=== PATIENT | female | born 1930 | race Caucasian/White ===

== ENCOUNTER 2016-04-03 08:18 | Emergency (ER) | payer OTHER, MEDICARE ==
[~2016-04-03] VITALS: Ht 165.1 cm; Wt 43.1 kg
[~2016-04-03 08:18] MED LIST: AMOXIL 875 MG875 MG PO; CARDIZEM 30 MG30 MG PO; DILTIAZEM HCL120 M2 PO; ELIQUIS2.5 MG PO; FERROUS SULFATE65 MG PO; FISH OIL CONC1000 MG PO; FISH OIL1000 MG PO; LEVSIN0.125 MG PO; LISINOPRIL AND1 TA2 PO; LISINOPRIL/HCTZ1 TAB PO; LISINOPRIL10 MG PO; LISINOPRIL20 MG PO; LOPRESSOR50 MG PO; METOPROLOL SUCC50 M1 PO; METOPROLOL TAR100 MG PO; METOPROLOL TART50 MG PO; PEPCID20 M1 PO; PRILOSEC 20MG C20 MG PO; SOOTHE LUBRICA1 EACH OPH; TYLENOL #31 TAB PO; TYLENOL XSTR500 MG PO; VENLAFAXINE HYD75 MG; VENLAFAXINE HYD75 MG PO; VITAMIN D32000 IU PO; XANAX0.25 MG PO; ZOFRAN4 M1 SL
[2016-04-03] MEDS ORDERED: XARELTO10 M1 PO (08:54)
--- NOTE | 2016-04-03 08:54 | ED SKIN/ALLERGY COMPLAINT ---
History of Present Illness General Chief Complaint: Skin Rash/ Abcess Stated Complaint: RASH ? MED REACTION Source: patient Exam Limitations: no limitations Vital Signs & Intake/Output Vital Signs & Intake/Output Vital Signs Date Time Temp Pulse Resp B/P Pulse O2 O2 Flow FiO2 Ox Delivery Rate 04/03 0824 97.8 101 18 160/71 96 Room Air Allergies Coded Allergies: apixaban (From ELIQUIS) (Severe, RASH 04/03/16) Reconcile Medications Alprazolam (Xanax) 0.25 MG TABLET 0.5-1 TAB PO DAILY PRN ANXIETY (Reported) Apixaban (Eliquis) 2.5 MG TAB 1 TAB PO BID blood thinner As per GI recommendation, will hold eliquis for 1 week and then restart it. Diltiazem Hydrochloride (Diltiazem HCl) 120 MG C24 1 CAP PO DAILY HEART ( Reported) Famotidine (Pepcid) 20 MG TABLET 1 TAB PO BID PRN GI (Reported) Hydroxyzine HCl 25 MG TABLET 1 TAB PO DAILY PRN ITCHING Metoprolol Tartrate 50 MG TAB 1 TAB PO BID HTN (Reported) Rivaroxaban (Xarelto) 10 MG TABLET 0.5 TAB PO DAILY BLD THINNER (Reported) Triage Note: 86 Y/O FEMALE C/O ITCHY RED RASH ALL OVER BODY, "FOR A WHILE". STATES SHE HAS BEEN ON ELIQUIS FOR A YEAR DUE TO AFIB; FEELS SHE BECAME ALLERGIC TO SAME. DOCTOR CHANGED MEDICATION TO XARELTO - PT TOOK 1 PILL YESTERDAY AND THEN RASH STARTED AGAIN. PT TOOK BENADRYL THIS AM WITH SOME RELIEF. Triage Nurses Notes Reviewed? yes HPI: This patient is an 86-year-old female the past medical history including anxiety , hypertension, and atrial fibrillation who presented to the emergency department today for evaluation of a rash. The patient reported that she has been on ELAQUIS, "for years." However, she reported that she started to develop a red rash, "everywhere," approximately 1 week ago. She reported that her primary care physician does already know about this. She reported that because of the rash, she was switched off of the ELAQUIS and on to XARELTO yesterday. The patient reported that she took one dose and developed the rash again. When asked where the rash is located she reported, "I do not have a rash it is just itchy. I was unable to sleep all night because of how it she was on my back." The patient reported that she took 5 mL of children's Benadryl last night and then 5 mL of children's Benadryl this morning without any relief of her symptoms. This patient takes Pepcid daily. She denied any fevers, chills, chest pain, difficulty breathing, or abdominal pain. She denied any lip swelling, tongue swelling, or any other associated symptoms. (ROCHELLE CROSS PA-C) Past History Travel History Traveled to [place] past 21 day No Medical History Any Pertinent Medical History? 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 No (ROCHELLE CROSS PA-C) Review of Systems Review of Systems Constitutional: Reports: no symptoms. EENTM: Reports: no symptoms. Respiratory: Reports: no symptoms. Cardiovascular: Reports: no symptoms. GI: Reports: no symptoms. Musculoskeletal: Reports: no symptoms. Skin: Reports: see HPI. Neurological/Psychological: Reports: no symptoms. All Other Systems: Reviewed and Negative (ROCHELLE CROSS PA-C) Physical Exam Physical Exam General Appearance: well developed/nourished, alert, awake, anxious Comments: Well-developed well-nourished person who appears anxious HEENT: Normal EENT exam, head normocephalic, moist mucous membranes No pharyngeal injection. No swelling of the lips or tongue. No oropharyngeal edema or lesions Neck: Supple, no lymphadenopathy Back: Normal gait. Normal inspection Respiratory: No respiratory distress. Speaking in full sentences. Lungs clear to auscultation bilaterally with no wheezes, rales, rhonchi Extremity: Normal and equal pulses. Neuro: Alert oriented x3, cranial nerves II through XII grossly intact. Skin: No appreciable rash on exposed skin, skin is warm and dry. Excoriations noted over the posterior aspect of the shoulders. Psych: Mood and affect is normal (ROCHELLE CROSS PA-C) Progress Differential Diagnosis: abscess/cellulitis, allergic reaction, anaphylaxis, angioedema, contact dermatitis, drug reaction, erythema multiforme, shingles, urticaria Plan of Care: Orders Procedure Date/time Status Heart Healthy Diet 04/03 L Active Comments: 04/03/2016 10:10:39 AM: The patient is currently sitting comfortably on the stretcher in no acute distress. She is currently eating from a food tray. Discussed this patient with Dr. Magaña who is currently covering for this patient 's primary care physician, Dr. Barraza. Discussed with him this known reaction. She will continue the Xarelto and go home; itching. She will follow-up in the primary care physician's office. 04/03/2016 10:25:37 AM: I was at the patient's bedside for reevaluation. She reported, "I feel much better." Stable for discharge home. Discussed this patient with Dr. Kearns who is in agreement with the plan. (ROCHELLE CROSS PA-C) Departure Departure Disposition: HOME OR SELF CARE Condition: Stable Clinical Impression Primary Impression: Medication reaction Referrals: DANGELO BARRAZA MD (PCP/Family) Additional Instructions: Please continues to take all medications as directed. Take Atarax as prescribed for itching. Please call your primary care physician to schedule a follow-up appointment. Return for any worsening symptoms or concerns. Departure Forms: Customer Survey General Discharge Information Prescriptions: Current Visit Scripts Hydroxyzine HCl 1 TAB PO DAILY PRN ITCHING #10 TAB (ROCHELLE CROSS PA-C) PA/STAFFING RECRUITER Co-Sign Statement Statement: ED Attending supervision documentation- [X] I saw and evaluated the patient. I have also reviewed all the pertinent lab results and diagnostic results. I agree with the findings and the plan of care as documented in the PA's/STAFFING RECRUITER's documentation. [X] I have reviewed the ED Record and agree with the PA's/STAFFING RECRUITER's documentation. [] Additions or exceptions (if any) to the PAs/STAFFING RECRUITER's note and plan are summarized below: [] (CECIL ROSALES,FARIDA)
[2016-04-03] MEDS ORDERED: HYDROXYZINE HCL25 M2 PO (10:27)
[2016-04-03 10:51] VITALS: BP 158/76
== END 2016-04-03 10:52 ==
LOC: ERH 08:18
DX: T45.515A Adverse effect of anticoagulants, initial encounter (principal); R21 Rash and other nonspecific skin eruption
CPT/HCPCS: 96374; 96375; J1200; J2930

== ENCOUNTER 2016-08-16 12:03 | Emergency (ER) | payer OTHER, MEDICARE ==
[~2016-08-16] VITALS: Ht 165.1 cm; Wt 44.0 kg
[~2016-08-16 12:03] MED LIST changes: +HYDROXYZINE HCL25 M2 PO; +XARELTO10 M1 PO
--- NOTE | 2016-08-16 12:41 | ED GENERAL ADULT ---
History of Present Illness General Chief Complaint: General Adult Stated Complaint: WEAKNESS/N Source: patient, family, old records Exam Limitations: no limitations Vital Signs & Intake/Output Vital Signs & Intake/Output Vital Signs Date Time Temp Pulse Resp B/P B/P Pulse O2 O2 Flow FiO2 Mean Ox Delivery Rate 08/16 1616 98.3 89 15 175/75 100 Room Air / 1458 96.8 86 16 174/77 98 Room Air 08/16 1412 99 Room Air 08/16 1209 97.8 87 15 185/56 97 Room Air Room Air Allergies Coded Allergies: apixaban (From ELIQUIS) (Severe, RASH 08/16/16) amoxicillin (UNKNOWN 08/16/16) azithromycin (UNKNOWN 08/16/16) Reconcile Medications Acetaminophen 500 MG TABLET 1 TAB PO Q6 pain Alprazolam (Xanax) 0.25 MG TABLET 0.5-1 TAB PO DAILY PRN ANXIETY (Reported) Apixaban (Eliquis) 2.5 MG TAB 1 TAB PO BID blood thinner As per GI recommendation, will hold eliquis for 1 week and then restart it. Diltiazem Hydrochloride (Diltiazem HCl) 120 MG C24 1 CAP PO DAILY HEART ( Reported) Famotidine (Pepcid) 20 MG TABLET 1 TAB PO BID PRN GI (Reported) Hydroxyzine HCl 25 MG TABLET 1 TAB PO DAILY PRN ITCHING Metoprolol Tartrate 50 MG TAB 1 TAB PO BID HTN (Reported) Rivaroxaban (Xarelto) 10 MG TABLET 0.5 TAB PO DAILY BLD THINNER (Reported) Scopolamine Hydrobromide (Transderm-Scop) 1.5MG/3DAY PATCH.TD.3 1 PAT TOP Q3D dizziness apply to the hairless area behind 1 ear at least 4 hours before effect is required; reapply every 3 days as needed Triage Note: PT TO ED FOR LIGHTHEADEDNESS WITH NEAR SYNCOPE AFTER AMBULATING UPSTAIRS. DENIES SOB, CP. +NAUSEA, +HEADACHE, DENIES CHANGE IN VISION. +WEAKNESS. Triage Nurses Notes Reviewed? yes Onset: Abrupt (earlier today) Duration: hour(s): (2-3 ) Timing: single episode today Severity: mild, moderate Severity Numbers: 5 No Modifying Factors: none Modifying Factors: Improves With: rest. Worsens With: movement. Associated Symptoms: nausea, dizziness, headache : No Patient currently breastfeeds: No HPI: 86-year-old female with a history of atrial fibrillation hypertension and brain aneurysm presents complaining of dizziness and weakness since today. She reports she was walking upstairs when all of a sudden became very dizzy and lightheaded and almost passed out. She reports her symptoms improved slightly with rest but she remains very weak. He also reports associated nausea but no vomiting along with headache. Headache is described as pressure and is located diffusely in her head. No chest pain shortness of breath abdominal pain diarrhea. She reports eating and drinking normally. Onset was acute out he was severe as it required patient come to the emergency department for evaluation. (SCOTT WASHINGTON PA-C) Past History Travel History Traveled to [place] past 21 day No Medical History Any Pertinent Medical History? 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 No (SCOTT WASHINGTON PA-C) Review of Systems Review of Systems Constitutional: Reports: see HPI, weakness. EENTM: Reports: no symptoms. Respiratory: Reports: no symptoms. Cardiovascular: Reports: no symptoms. GI: Reports: nausea. Genitourinary: Reports: no symptoms. Musculoskeletal: Reports: no symptoms. Skin: Reports: no symptoms. Neurological/Psychological: Reports: headache, weakness, other (dizziness). Hematologic/Endocrine: Reports: no symptoms. Immunologic/Allergic: Reports: no symptoms. All Other Systems: Reviewed and Negative (SCOTT WASHINGTON PA-C) Physical Exam Physical Exam General Appearance: well developed/nourished, no apparent distress, alert, awake , thin Head: atraumatic, normal appearance Eyes: Bilateral: normal appearance, PERRL, EOMI, other (horizontal nystagnus). Ears, Nose, Throat: normal pharynx, normal ENT inspection, hearing grossly normal Neck: normal inspection, supple, full range of motion, trachea mid line, no midline tenderness Respiratory: normal breath sounds, chest non-tender, no respiratory distress, lungs clear Cardiovascular: regular rate/rhythm Peripheral Pulses: 2+ carotid (R), 2+ carotid (L), 2+ radial (R), 2+ radial (L) Gastrointestinal: normal bowel sounds, soft, non-tender, no organomegaly Rectal: deferred Back: normal inspection, normal range of motion Extremities: normal inspection, normal capillary refill, normal range of motion, no edema Neurologic/Psych: no motor/sensory deficits, awake, alert, oriented x 3, normal gait, normal mood/affect Reflexes: 2+: knee (R), knee (L). Skin: intact, normal color, warm/dry Lymphatic: no anterior cervical bebeto Comments: Patient is neurologically intact. There is some horizontal nystagmus on exam otherwise exam is within normal limits Core Measures ACS in differential dx? Yes ASA ordered for poss ACS? No-ACS ruled out CVA/TIA Diagnosis: Yes NIH Stroke Scale: Total 0 Severe Sepsis Present: No Septic Shock Present: No (SCOTT WASHINGTON PA-C) Progress Differential Diagnoses I considered the following diagnoses in my evaluation of my pt; vertigo, CVA/TIA , ruptured brain aneurysm, cranial bleed, intercranial mass, dysrhythmia, acute coronary syndrome, anemia, electrolyte disturbance Plan of Care: Orders Procedure Date/time Status MISTAKE 08/16 1243 Active URINALYSIS 08/16 1243 Complete TROPONIN LEVEL 08/16 1211 Complete COMPREHENSIVE METABOLIC PANEL 08/16 1211 Complete CBC WITHOUT DIFFERENTIAL 08/16 1211 Complete EKG 08/16 1211 Active Laboratory Tests 08/16/16 1347: Urinalysis LIGHT H, Urine Color YEL, Urine Clarity CLEAR, Urine pH 6.0, Ur Specific [place] 1.025, Urine Protein TRACE H, Urine Ketones NEG, Urine Nitrite NEG, Urine Bilirubin NEG, Urine Urobilinogen 0.2, Ur Leukocyte Esterase NEG, Ur Microscopic SEDIMENT EXAMINED, Urine RBC RARE, Urine WBC RARE, Ur Epithelial Cells FEW, Urine Bacteria RARE H, Urine Mucus FEW, Urine Hemoglobin NEG, Urine Glucose NEG 08/16/16 1230: Anion Gap 7, Estimated GFR 59 L, BUN/Creatinine Ratio 33.3 H, Glucose 97, Calcium 8.7, Total Bilirubin 0.5, AST 29, ALT 42, Alkaline Phosphatase 87, Troponin I < 0.01, Total Protein 6.4, Albumin 4.0, Globulin 2.4, Albumin/ Globulin Ratio 1.7, CBC w Diff NO MAN DIFF REQ, RBC 3.61 L, MCV 92.9, MCH 30.5, RDW 13.8, MPV 9.0, Gran % 60.6, Lymphocytes % 26.9, Monocytes % 9.8 H, Eosinophils % 2.3, Basophils % 0.4, Absolute Granulocytes 3.6, Absolute Lymphocytes 1.6, Absolute Monocytes 0.6, Absolute Eosinophils 0.1, Absolute Basophils 0, PUBS MCHC 32.[address] angiogram of the head showed stable brain aneurysms that are unchanged from previous study. No acute bleeding or other abnormality. Patient reports improvement after receiving 650 mg of by mouth Tylenol and a scopolamine patch. Blood work shows mild anemia that is improved from previous labs. Mildly increased BUN could be related to dehydration. GFR and creatinine are within normal limits. Remaining labs are within normal limits. Previous labs were reviewed and are similar to current findings. Patient is hypertensive to 180s and reports not taking her by mouth diltiazem today. Patient was given diltiazem 120 mg by mouth in the emergency department before discharge. Advised her to continue her blood pressure medications as directed and check her blood pressure at home. Patient will be discharged home with by mouth Tylenol and scopolamine patches to use when needed. She will follow-up with her primary care doctor this week and return to emergency department as needed. Case was discussed with Dr. Ovalle who is in agreement with the plan. (FELIX PAGE,SCOTT) Diagnostic Imaging: Viewed by Me: CT Scan. Initial ED EKG: normal intervals, normal p-waves, normal QRS complex, AFIB, no ST T wave changes, RVH Comments: EXAM TYPE: CAT - CT HEAD ANGIOGRAM EXAMINATION: CT ANGIOGRAM HEAD CLINICAL INFORMATION: Dizziness and headache. History of brain aneurysm. COMPARISON: MRI and MRA scans of the head 01/01/2016. CT scan of the head 07/16/2014. TECHNIQUE: A noncontrast axial CT scan of the head was obtained. Test bolus sequences followed by intravenous administration 95 mL of Optiray 350 intravenous contrast. Helical imaging was performed in the axial plane from the mediastinum to the skull vertex. Delayed postcontrast imaging of the head was also performed. The data was processed at the ocular care technologist's workstation for generation of MIP sequences. Three-dimensional volume rendered reformatted images were also generated at an offline 3-D workstation. DLP: 563.11 mGy-cm FINDINGS: CT Head: There is no evidence of acute intracranial hemorrhage or territorial infarction. No abnormal mass-effect or midline shift is seen. Kang to white matter differentiation is well preserved. No extra-axial fluid collections are identified. There is no abnormal enhancement. The ventricles and sulci are slightly commensurately prominent consistent with mild diffuse volume loss. There is mild prominence of the extra-axial CSF over the cerebral convexities consistent with sequelae of volume loss and similar compared to prior imaging. The osseous structures and soft tissues are normal. The mastoid air cells are well-aerated. There is extensive mucoperiosteal thickening in the left maxillary sinus which contains areas of calcification, consistent with chronic sinus disease. This may be increased compared to prior imaging. CTA Head: In the anterior circulation, the distal internal carotid arteries within the neck appear normal. 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 The study also redemonstrates the 6.7 x 5.4 x 6.1 mm aneurysm arising off the dorsal aspect of the right supraclinoid internal carotid artery. In addition, the study redemonstrates a tubular aneurysm arising off the medial aspect of the supraclinoid internal carotid artery just proximal to its bifurcation which measures 3.2 x 2.1 x 3.0 mm. The bifurcations of the internal carotid arteries appear normal. The middle and anterior cerebral arteries are patent bilaterally. There is a third A2 segment of the anterior cerebral artery arising off the left aspect of the anterior communicating artery, which is a normal variant. The anterior neck at artery appears normal. In the posterior circulation, the right vertebral artery is dominant. The vertebral arteries intradurally have normal caliber. The basilar artery appears normal. The posterior cerebral arteries have normal caliber. The dural venous sinuses opacify normally. IMPRESSION: CT head: 1. There are no acute intracranial findings. There is no evidence of hemorrhage or territorial infarction. 2. There are sequelae of diffuse volume loss. There are no masses or areas of abnormal enhancement. CTA head: 1. 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 There is no evidence of aneurysm leak. (FELIX PAGE,SCOTT) Departure Departure Disposition: HOME OR SELF CARE Condition: Stable Clinical Impression Primary Impression: Vertigo Secondary Impressions: Headache Referrals: DANGELO CORTEZ MD (PCP/Family) Additional Instructions: Rest, drink plenty of fluids use Tylenol 500 mg every 6 hours as needed for pain. Apply patches as as directed for vertigo symptoms. They can follow up with your primary care doctor this week. return to the emergency department with any concerns. Please go over all results of today's visit with your primary care doctor. Contact your primary care doctor to let them know you were here in the emergency room. There may be nonspecific findings which may not be related to your visit today here in the emergency room but may require further evaluation and chronic monitoring by your primary care doctor. If you had a laceration today the chance of foreign body always remains. You should follow-up with your primary care doctor for recheck in 3-5 days for a wound check. If you had an x-ray done there is a chance that a fracture could have been missed on initial read and you should follow-up with your primary care doctor for repeat x-rays if symptoms persist. If your blood pressure was elevated here in the emergency room please have rechecked by her primary care doctor within the next 48 hours by your primary care doctor. If you were prescribed a narcotic here in the emergency room or any type of controlled substances you're not allowed to drive while taking this medication or operate any type of heavy machinery. Narcotics can make you feel lightheaded dizziness nausea and can cause constipation. You may need to belt picker a stool softener. Thank you for choosing [facility] emergency room. Please return to the emergency room immediately if you have any other concerns worsening of symptoms. Departure Forms: Customer Survey General Discharge Information Prescriptions: Current Visit Scripts Acetaminophen 1 TAB PO Q6 #30 TAB Scopolamine Hydrobromide (Transderm-Scop) 1 PAT TOP Q3D #4 PAT apply to the hairless area behind 1 ear at least 4 hours before effect is required; reapply every 3 days as needed (SCOTT WASHINGTON PA-C) PA/RUG DYER Co-Sign Statement Statement: ED Attending supervision documentation- I saw and evaluated the patient. I have also reviewed all the pertinent lab results and diagnostic results. I agree with the findings and the plan of care as documented in the PA's/RUG DYER's documentation. x I have reviewed the ED Record and agree with the PA's/RUG DYER's documentation. [] Additions or exceptions (if any) to the PAs/RUG DYER's note and plan are summarized below: [] (ERIKA ROSALES,TIANA) Critical Care Note Critical Care Note Critical Care Time: non-applicable (SCOTT WASHINGTON PA-C)
[2016-08-16 12:45] LABS: ABSOLUTE BASOPHIL COUNT 0 /CUMM (0.0-0.2); ABSOLUTE EOSINOPHIL COUNT 0.1 /CUMM (0.0-0.7); ABSOLUTE GRANULOCYTE CT 3.6 /CUMM (1.4-6.5); ABSOLUTE LYMPH COUNT 1.6 /CUMM (1.2-3.4); ABSOLUTE MONOCYTE COUNT 0.6 /CUMM (0.10-0.60); BASOPHIL % 0.4 % (0.0-2.0); EOSINOPHIL % 2.3 % (0-5); GRANULOCYTE % 60.6 % (42.2-75.2); HEMATOCRIT 33.5 % (37-47); MEAN CORPUSCULAR HGB 30.5 PG (27.0-31.0); MEAN CORPUSCULAR HGB CONC 32.8 G/DL (33.0-37.0); MEAN CORPUSCULAR VOLUME 92.9 FL (81.0-99.0); PLATELET COUNT 165 /CUMM (130-400); RBC DISTRIBUTION WIDTH 13.8 % (11.5-14.5); RED BLOOD CELL CT 3.61 /CUMM (4.20-5.40); WHITE BLOOD CELL COUNT 5.9 /CUMM (4.8-10.8)
--- NOTE | 2016-08-16 15:30 | CT SCAN REPORT ---
EXAMINATION: CT ANGIOGRAM HEAD CLINICAL INFORMATION: Dizziness and headache. History of brain aneurysm. COMPARISON: MRI and MRA scans of the head 01/01/2016. CT scan of the head 07/16/2014. TECHNIQUE: A noncontrast axial CT scan of the head was obtained. Test bolus sequences followed by intravenous administration 95 mL of Optiray 350 intravenous contrast. Helical imaging was performed in the axial plane from the mediastinum to the skull vertex. Delayed postcontrast imaging of the head was also performed. The data was processed at the ophthalmic technologist's workstation for generation of MIP sequences. Three-dimensional volume rendered reformatted images were also generated at an offline 3-D workstation. DLP: 563.11 mGy-cm FINDINGS: CT Head: There is no evidence of acute intracranial hemorrhage or territorial infarction. No abnormal mass-effect or midline shift is seen. Kang to white matter differentiation is well preserved. No extra-axial fluid collections are identified. There is no abnormal enhancement. The ventricles and sulci are slightly commensurately prominent consistent with mild diffuse volume loss. There is mild prominence of the extra-axial CSF over the cerebral convexities consistent with sequelae of volume loss and similar compared to prior imaging. The osseous structures and soft tissues are normal. The mastoid air cells are well-aerated. There is extensive mucoperiosteal thickening in the left maxillary sinus which contains areas of calcification, consistent with chronic sinus disease. This may be increased compared to prior imaging. CTA Head: In the anterior circulation, the distal internal carotid arteries within the neck appear normal. 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 The study also redemonstrates the 6.7 x 5.4 x 6.1 mm aneurysm arising off the dorsal aspect of the right supraclinoid internal carotid artery. In addition, the study redemonstrates a tubular aneurysm arising off the medial aspect of the supraclinoid internal carotid artery just proximal to its bifurcation which measures 3.2 x 2.1 x 3.0 mm. The bifurcations of the internal carotid arteries appear normal. The middle and anterior cerebral arteries are patent bilaterally. There is a third A2 segment of the anterior cerebral artery arising off the left aspect of the anterior communicating artery, which is a normal variant. The anterior neck at artery appears normal. In the posterior circulation, the right vertebral artery is dominant. The vertebral arteries intradurally have normal caliber. The basilar artery appears normal. The posterior cerebral arteries have normal caliber. The dural venous sinuses opacify normally. IMPRESSION: CT head: 1. There are no acute intracranial findings. There is no evidence of hemorrhage or territorial infarction. 2. There are sequelae of diffuse volume loss. There are no masses or areas of abnormal enhancement. CTA head: 1. 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 There is no evidence of aneurysm leak.
[2016-08-16] MEDS ORDERED: ACETAMINOPHEN500 M4 PO (15:53)
[2016-08-16] MEDS ORDERED: TRANSDERM-SCOP1 EACH TOP (15:53)
[2016-08-16 16:16] VITALS: BP 175/75
== END 2016-08-16 16:17 ==
LOC: ERH 12:03
PROVIDERS: Emergency Medicine
DX: R42 Dizziness and giddiness (principal)
CPT/HCPCS: 81001; 93005; 93010

== ENCOUNTER 2017-04-06 05:53 | Emergency (ER) | payer OTHER ==
[~2017-04-06] VITALS: Ht 162.6 cm; Wt 40.8 kg
[~2017-04-06 05:53] MED LIST changes: +ACETAMINOPHEN500 M4 PO; +CARTIA XT120 M1 PO; +ELIQUIS2.5 M1 PO; +METOPROLOL TART25 M1 PO; +TRANSDERM-SCOP1 EACH TOP
[2017-04-06 06:17] VITALS: BP 136/63
--- NOTE | 2017-04-06 06:31 | ED GI/GU/ABDOMINAL COMPLAINT ---
History of Present Illness General Chief Complaint: General Adult Stated Complaint: PT C/O "BURNING PAIN IN RECTUM" WEAKNESS Source: patient, family, old records Exam Limitations: no limitations Vital Signs & Intake/Output Vital Signs & Intake/Output Vital Signs Date Time Temp Pulse Resp B/P B/P Pulse O2 O2 Flow FiO2 Mean Ox Delivery Rate 04/06 0517 96.0 84 20 136/63 97 Room Air Allergies Coded Allergies: apixaban (From ELIQUIS) (Severe, RASH 08/16/16) amoxicillin (UNKNOWN 08/16/16) azithromycin (UNKNOWN 08/16/16) Reconcile Medications Acetaminophen 500 MG TABLET 1 TAB PO Q6 pain Alprazolam (Xanax) 0.25 MG TABLET 0.5-1 TAB PO DAILY PRN ANXIETY (Reported) Anusol Hc (Anusol-Hc) 25 MG SUPP.RECT 1 SUP RC BID hemorrhoid Apixaban (Eliquis) 2.5 MG TABLET 1 TAB PO BID HEART HEALTH (Reported) Apixaban (Eliquis) 2.5 MG TAB 1 TAB PO BID blood thinner As per GI recommendation, will hold eliquis for 1 week and then restart it. Diltiazem HCl (Cartia Xt) 120 MG CAP.ER.24H 1 CAP PO DAILY HEART HEALTH ( Reported) Diltiazem Hydrochloride (Diltiazem HCl) 120 MG C24 1 CAP PO DAILY HEART ( Reported) Famotidine (Pepcid) 20 MG TABLET 1 TAB PO BID PRN GI (Reported) Hydroxyzine Hydrochloride (Atarax) 25 MG TABLET 1 TAB PO DAILY PRN ITCHING Metoprolol Tartrate 50 MG TAB 1 TAB PO BID HTN (Reported) Metoprolol Tartrate 25 MG TABLET 1 TAB PO BID HEART HEALTH (Reported) Rivaroxaban (Xarelto) 10 MG TABLET 0.5 TAB PO DAILY BLD THINNER (Reported) Scopolamine Hydrobromide (Transderm-Scop) 1.5MG/3DAY PATCH.TD.3 1 PAT TOP Q3D dizziness apply to the hairless area behind 1 ear at least 4 hours before effect is required; reapply every 3 days as needed Triage Note: PT REPORTS BURNING AT TOP OF COCCYX AND IN RECTUM THAT BEGAN A "COUPLE OF DAYS AGO". PT REPORTS HAVING BM'S , SOME WITH STRAINING. PT DENIES ANY DARK OR TARRY STOOLS. PT REPORTS +N, -V. Triage Nurses Notes Reviewed? yes ? N Is pt currently ? No HPI: Patient presents with a burning sensation in her rectum. Patient has been is in [id number] lidocaine cream which helps. The burning sensation worsens with defecation. There's no abdominal pain. There's no nausea or vomiting. When she bends over she feels a lump in her rectum. There is no true pain. Past History Travel History Traveled to [place] past 21 day No Medical History Any Pertinent Medical History? see below for history Neurological: NONE EENT: NONE Cardiovascular: AFIB, aortic stenosis, hypertension, CEREBRAL ANEURYSM Respiratory: NONE Gastrointestinal: colitis, GERD, pancreatitis Hepatic: NONE Renal: NONE Musculoskeletal: NONE Psychiatric: anxiety, insomnia Endocrine: NONE Blood Disorders: NONE Cancer(s): NONE [employer]/Reproductive: NONE History of MRSA: No History of VRE: No History of CDIFF: No Tetanus Vaccine: 09/26/04 Surgical History Surgical History: BILATERAL FEMUR REPAIR Psychosocial History Who do you live with Family Services at Home None What is your primary language Vietnamese Tobacco Use: Quit >30 days ago ETOH Use: denies use Illicit Drug Use: denies illicit drug use Family History Family History, If Any: FATHER Tobacco abuse BROTHER FH: lung cancer Hx Contributory? No Review of Systems Review of Systems Constitutional: Reports: no symptoms. Respiratory: Reports: no symptoms. Cardiovascular: Reports: no symptoms. GI: Reports: see HPI. Musculoskeletal: Reports: no symptoms. Neurological/Psychological: Reports: no symptoms. Immunologic/Allergic: Reports: no symptoms. Physical Exam Physical Exam General Appearance: well developed/nourished, alert, awake Eyes: Bilateral: PERRL, EOMI. Respiratory: normal breath sounds, chest non-tender, no respiratory distress, lungs clear Cardiovascular: regular rate/rhythm, normal peripheral pulses Gastrointestinal: normal bowel sounds, soft, non-tender, no organomegaly Rectal: normal rectal tone, hemmorrhoids Back: normal inspection Neurologic/Psych: no motor/sensory deficits, awake, alert, oriented x 3, normal gait, normal mood/affect Core Measures ACS in differential dx? No Sepsis Present: No Sepsis Focused Exam Completed? No Progress Differential Diagnosis: hemorrhoids Plan of Care: ANUSOL AND FOLLO WUP Initial ED EKG: none Departure Departure Disposition: HOME OR SELF CARE Condition: Stable Clinical Impression Primary Impression: Hemorrhoid Referrals: Aversa Jr. DO,Franck Walker MD,Franck Jane (PCP/Family) Additional Instructions: Use suppository twice a day for the burning follow up with Dr. More Return if symptoms worsen or for any concerns Departure Forms: Customer Survey General Discharge Information Prescriptions: Current Visit Scripts Anusol Hc (Anusol-Hc) 1 SUP RC BID #[id number] SUP
[2017-04-06] MEDS ORDERED: ANUSOL-HC25 M1 RC (06:38)
== END 2017-04-06 07:00 ==
LOC: ERH 05:53
DX: K64.9 Unspecified hemorrhoids (principal)